=== PATIENT | female | born 1985 | race Two or more races ===

== ENCOUNTER 2018-10-16 20:01 | Emergency (ER) | payer MEDICAID, OTHER ==
[~2018-10-16] VITALS: Ht 167.6 cm; Wt 138.8 kg
[2018-10-16 20:30] VITALS: BP 127/74
[2018-10-16] MEDS ORDERED: SODIUM CHLORIDE 0.9% 1,000 ML IVB ONE (20:31)
[2018-10-16] MEDS ORDERED: ONDANSETRON HCL 4 MG/2 ML VIAL IV ONE (20:45)
[2018-10-16] MEDS ORDERED: IOHEXOL 300 MG/ML 100ML BOTTLE IJ ONE (20:46)
[2018-10-16 20:58] LABS: Basophils # (auto) 0.1 uL; Basophils % (auto) 1.4 % (0.0-2.0); Eosinophils # (auto) 0.1 uL; Eosinophils % (auto) 1.2 % (0.0-7.0); Hemoglobin 9.5 g/dL (12.2-16.2); Monocytes # (auto) 0.7 uL; Neutrophils # (auto) 6.4 uL; Nucleated Red Blood Cells % 0.1 %
[2018-10-16 20:59] LABS: Hematocrit 32.1 % (36.0-46.0); Lymphocytes % (auto) 29.2 % (10.0-50.0); Mean Corpuscular Hemoglobin 17.8 pg (28.0-32.0); Mean Corpuscular Hgb Conc. 29.7 g/dL (32.0-36.0); Mean Corpuscular Volume 59.9 fL (80.0-100.0); Monocytes % (auto) 6.4 % (0.0-12.0); Neutrophils % (auto) 61.8 % (37.0-80.0); Platelet Count (auto) 326 10^3/uL (140-450); Red Blood Cells 5.35 10^6/uL (4.0-5.20); White Blood Cell 10.3 10^3/uL (4.4-10.8)
[2018-10-16 21:11] LABS: Red Cell Distribution Width 20.3 % (11.8-14.3)
[2018-10-16 21:15] LABS: Albumin 3.6 g/dL (3.4-5.0); BUN/Creatinine Ratio 17.9; Magnesium 2.1 mg/dL (1.6-2.6); Potassium 3.7 mmol/L (3.5-5.1)
[2018-10-16 21:22] LABS: Bilirubin, Total 0.2 mg/dL (0.2-1.0); Total Protein 7.7 g/dL (6.4-8.2)
== END 2018-10-16 22:36 | disposition home or self-care (01) ==
LOC: ER 20:17
DX: K21.9 Gastro-esophageal reflux disease without esophagitis (principal); E86.0 Dehydration; Z85.41 Personal history of malignant neoplasm of cervix uteri
CPT/HCPCS: 36415; 74177; 80053; 82150; 83690; 83735; 85025; 96361; 96374; 99284; J2405; J7030; Q9967

== ENCOUNTER 2018-11-30 15:43 | Emergency (ER) | payer SELFPAY ==
[~2018-11-30] VITALS: Ht 167.6 cm; Wt 136.1 kg
[2018-11-30 15:55] VITALS: BP 135/75
[2018-11-30 16:36] LABS: Urine Bacteria FEW /hpf (None Seen); Urine Blood Negative /uL (Negative); Urine Mucus FEW (None Seen); Urine WBC 1 /hpf (0 - 5)
[2018-11-30] MEDS ORDERED: KETOROLAC TROMETH 60MG/2ML VIAL IM ONE (17:30)
== END 2018-11-30 17:36 | disposition home or self-care (01) ==
LOC: ER 15:48
DX: N39.0 Urinary tract infection, site not specified (principal); Z85.41 Personal history of malignant neoplasm of cervix uteri
CPT/HCPCS: 81001; 81025; 96372; 99283; J1885